=== PATIENT | female | born 1985 | race Caucasian/White ===

== ENCOUNTER 2020-08-28 13:17 | Emergency (ER) | payer MEDICAID ==
[~2020-08-28] VITALS: Ht 170.2 cm; Wt 99.8 kg
[2020-08-28 13:30] VITALS: BP 126/67
--- NOTE | 2020-08-28 13:30 | NUR ---
Patient in tent for covid precaution
--- NOTE | 2020-08-28 13:34 | NUR ---
35 y/o female from home c/o cough and fever x 4 days. Pt states unknown covid contact. RR even and unlabored. Denies SOB/chest pain. Skin warm, dry, intact. Afebrile at this time. 5/10 aching pain. VSS medhx: asthma
--- NOTE | 2020-08-28 14:30 | NUR ---
Covid swab collected and walked to lab.
[2020-08-28 14:56] VITALS: BP 126/67
--- NOTE | 2020-08-28 14:57 | NUR ---
Patient discharged with v/s stable. Written and verbal after care instructions given and explained. Patient alert, oriented and verbalized understanding of instructions. Ambulatory with steady gait. All questions addressed prior to discharge. ID band removed. Patient advised to follow up with PMD. Rx of Promethazine 6.25mg, Ibuprofen 600mg given. Patient educated on indication of medication including possible reaction and side effects. Opportunity to ask questions provided and answered.
== END 2020-08-28 14:57 | disposition home or self-care (01) ==
LOC: MED 13:17
DX: R50.9 Fever, unspecified (principal); Z20.828 Contact with and (suspected) exposure to other viral communicable diseases; J45.909 Unspecified asthma, uncomplicated
CPT/HCPCS: 99283; U0003

== ENCOUNTER 2021-05-25 14:31 | Emergency (ER) | payer MEDICAID ==
[~2021-05-25] VITALS: Ht 170.2 cm; Wt 97.1 kg
[2021-05-25 14:33] VITALS: BP 116/72
--- NOTE | 2021-05-25 14:42 | NUR ---
PT AMBULATED TO RESTROOM WITH STEADY GAIT.
--- NOTE | 2021-05-25 15:04 | NUR ---
ASHLIE FLORENCE AT PT BEDSIDE FOR FURTHER EVALUATION.
--- NOTE | 2021-05-25 15:07 | NUR ---
35 Y/O FEMALE C/O SUPRAPUBIC PAIN 5/10 DESCRIBES BURNING RADIATES TO LOWER BACK [id number]. PT STATES DYSURIA, DENIES N/V, DENIES FEVER/CHILLS. DENIES PMH NKA
[2021-05-25] MEDS ORDERED: KETOROLAC 30 MG/ML VIAL IM ONE (15:10)
--- NOTE | 2021-05-25 15:24 | NUR ---
US AT PT BEDSIDE.
--- NOTE | 2021-05-25 15:29 | NUR ---
PER LAB ANOTHER UA SAMPLE NEEDED TO BE COLLECTED.
--- NOTE | 2021-05-25 16:08 | NUR ---
PA AT PT BEDSIDE FOR WET MOUNT PROCEDURE.
--- NOTE | 2021-05-25 16:09 | NUR ---
Female [employer] Service Advisor accompanied female patient for Pelvic Exam.
--- NOTE | 2021-05-25 16:22 | NUR ---
PT AMBULATED TO RESTROOM FOR UA COLLECTION.
--- NOTE | 2021-05-25 16:31 | NUR ---
UA SAMPLE WALKED TO LAB.
[2021-05-25 16:36] LABS: APPEARANCE,URINE CLOUDY (CLEAR); BILIRUBIN,URINE NEGATIVE (NEGATIVE); BLOOD, URINE 3+ (NEGATIVE); COLOR,URINE DARK YELLOW (YELLOW); LEUKOCYTE ESTERASE ,URINE 1+ (NEGATIVE); NITRITE, URINE NEGATIVE (NEGATIVE); PH,URINE 6.5 (5.0-9.0); UGLUCOSE NEGATIVE (NEGATIVE)
[2021-05-25] MEDS ORDERED: CEPH-588 PO (16:53)
[2021-05-25 17:11] LABS: RBC,URINE 50-80 /HPF (0-5)
[2021-05-25 17:24] VITALS: BP 118/76
--- NOTE | 2021-05-25 17:24 | NUR ---
Patient discharged with v/s stable. Written and verbal after care instructions given URINARY TRACT INFECTION and explained. Patient alert, oriented and verbalized understanding of instructions. Ambulatory with steady gait. All questions addressed prior to discharge. ID band removed. Patient advised to follow up with PMD. Rx of KEFLEX 500MG PO BID given. Patient educated on indication of medication including possible reaction and side effects. Opportunity to ask questions provided and answered.
== END 2021-05-25 17:24 | disposition home or self-care (01) ==
LOC: MED 14:31
DX: N39.0 Urinary tract infection, site not specified (principal); R10.2 Pelvic and perineal pain; J45.909 Unspecified asthma, uncomplicated; Z79.899 Other long term (current) drug therapy
CPT/HCPCS: 36415; 76830; 81001; 81025; 87086; 87210; 87491; 96372; 99284; J1885; Q0092

== ENCOUNTER 2022-03-09 14:15 | Emergency (ER) | payer MEDICAID ==
[~2022-03-09] VITALS: Ht 165.1 cm; Wt 95.8 kg
[~2022-03-09 14:15] MED LIST: CEPH-588 PO
[2022-03-09 14:20] VITALS: BP 122/67
--- NOTE | 2022-03-09 14:27 | NUR ---
PT AMBULATED TO BED 05.
--- NOTE | 2022-03-09 14:40 | NUR ---
PT IN GOWN AND URINE OBTAINED
[2022-03-09] MEDS ORDERED: ACETAMINOPHEN 325 MG TAB PO ONE (14:55)
--- NOTE | 2022-03-09 15:08 | NUR ---
36 Y/O FEMALE C/O LOWER ABDOMINAL PAIN DESCRIBES SHARP WITH NAUSEA [id number]. STATES THERE MIGHT BE A CHANCE SHE IS . LMP 01/11/22. [id number]. DENIES FEVER/CHILLS. STATES +N/-V. PMH: ASTHMA NKA
--- NOTE | 2022-03-09 15:13 | NUR ---
Rafita santoyo in ED - 03/09/22 at 1543 by MNKELVIN PT STATES STILL HAVING PAIN. PT REFUSED MEDICATION DR HOGUE AWARE OF PAIN . PENDING DC PAPERWORK
--- NOTE | 2022-03-09 15:44 | NUR ---
PT IN BED RESP EVEN AND UNLABORED
[2022-03-09 15:52] LABS: BILIRUBIN,URINE NEGATIVE (NEGATIVE); BLOOD, URINE NEGATIVE (NEGATIVE); COLOR,URINE YELLOW (YELLOW); LEUKOCYTE ESTERASE ,URINE 1+ (NEGATIVE); NITRITE, URINE NEGATIVE (NEGATIVE); UGLUCOSE NEGATIVE (NEGATIVE)
--- NOTE | 2022-03-09 15:54 | NUR ---
Rafita santoyo in ED - 03/09/22 at 1556 by [email or web address] U/S ORDERED . PT IS 14 WEEKS PREG.
--- NOTE | 2022-03-09 15:56 | NUR ---
U/S TO BE DONE .
[2022-03-09 15:57] LABS: APPEARANCE,URINE HAZY (CLEAR)
[2022-03-09 16:09] LABS: RBC,URINE NONE SEEN /HPF (0-5)
[2022-03-09] MEDS ORDERED: cephALEXin 500 MG CAP PO ONE (16:35)
[2022-03-09] MEDS ORDERED: CEPH500C16 PO (16:37)
[2022-03-09 17:53] VITALS: BP 105/69
--- NOTE | 2022-03-09 18:00 | NUR ---
The patient's care was reviewed and supervised by Stacey Mcconnell RN.
== END 2022-03-09 17:53 | disposition home or self-care (01) ==
LOC: MED 14:15
DX: O23.41 Unspecified infection of urinary tract in pregnancy, first trimester (principal); O20.8 Other hemorrhage in early pregnancy; J45.909 Unspecified asthma, uncomplicated; Z79.899 Other long term (current) drug therapy; Z3A.01 Less than 8 weeks gestation of pregnancy
CPT/HCPCS: 36415; 76801; 81001; 81025; 84702; 87086; 99284; Q0092